=== PATIENT | female | born 1985 | race Caucasian/White ===

== ENCOUNTER → 2020-06-13 10:31 | Outpatient (CLI) | payer OTHER, SELFPAY ==
[2020-06-13 13:51] LABS: COVID19 -Nasal RAPID Negative (Negative)
== END ==
PROVIDERS: Visit Provider Physician Assistant
DX: Z20.822 Contact with and (suspected) exposure to COVID-19 (principal)
CPT/HCPCS: 87635

== ENCOUNTER 2020-06-15 08:27 | Day surgery (SDC) | payer OTHER, SELFPAY ==
[2020-06-15] VITALS (8 sets, daily range): BP systolic 103–124; BP diastolic 69–79; PULSE 92–111; RESP 14–20; TEMP 36.2–36.9; O2SAT 91–99; BMI 31.6
[2020-06-15] MEDS: SODIUM CHLORIDE 0.9% 1,000 ML 42 ML IV (09:30)
--- NOTE | 2020-06-15 09:37 | PM.HP.1 ---
History of Present Illness History of Present Illness Date Patient Seen: 06/15/20 Chief complaint: SDC Narrative: Abdominal pain and change in bowel movements Patient History Medical History (Updated 06/15/20 @ 09:20 by Ernestina Lopez, RN) BMI greater than 30 Chronic back pain Endometriosis Surgical History (Updated 06/15/20 @ 09:20 by Ernestina Lopez, RN) H/O ovarian cystectomy History of laparoscopy History of tonsillectomy S/P breast lumpectomy S/P left knee arthroscopy Family & Social History Social History: household members spouse,children Tobacco & Substance use: Smoking Status Never smoker alcohol intake never Substance Use Type does not use Meds Home Medications and Allergies Home Medications Medication Instructions Recorded Confirmed Type naproxen 500 mg PO BID PRN 06/15/20 06/15/20 History Allergies Allergy/AdvReac Type Severity Reaction Status Date / Time No Known Drug Allergies Allergy Verified 06/15/20 09:17 Exam Vital Signs (past 8 hours): - 06/15/20 09:13 Temperature 97.1 F L Pulse Rate 92 H Respiratory Rate 14 Blood Pressure 120/76 Pulse Oximetry 99 Oxygen Delivery Method Room Air Narrative Exam Narrative: Oropharynx free of lesions Chest clear to auscultation percussion Cardiac exam reveals no S3 or murmur Assessment & Plan Assessment & Plan narrative: Abnormal bowel movements with abdominal pain rule out underlying colitis. Also occasional fecal incontinence rule out rectal lesion. Risks benefits alternatives have been explained. Quality MIPS - Admit Advanced Care Plan / Current Medications Measures: #47 ? Advanced Care Plan Clinician documentation instruction: document at admission. [] I confirmed that the patient's Advance Care Plan is present, code status is documented, or surrogate decision maker is listed in the patient?s medical record. [SATISFIES MIPS PERFORMANCE] If Yes, Stop Here [] The patient?s Advance Care plan is not present because: (select) [MIPS PERFORMANCE EXCEPTION/EXCLUSION] [] I confirmed today that the patient does not wish or was not able to name a surrogate decision maker or provide an Advance Care Plan. [] Hospice care is currently being provided or has been provided this calendar year [] I did NOT confirm today the presence of an Advance Care Plan or surrogate decision maker documented within the patient's medical record. [DOES NOT SATISFY MIPS PERFORMANCE] #130 - Documentation of Current Medications in the Medical Record Clinician documentation instruction: use macro the first time you see a patient. [] I have utilized all available immediate resources to obtain, update, or review the patient?s current medications. [SATISFIES MIPS PERFORMANCE] If Yes, Stop Here [] The patient is not eligible for medication reconciliation; the patient is in an emergent medical situation where delaying treatment would jeopardize the patient?s health. [MIPS PERFORMANCE EXCEPTION/EXCLUSION] [] I did NOT confirm, update or review the patient's current list of medications today. [DOES NOT SATISFY MIPS PERFORMANCE] MIPS - CL Central Venous Catheter Placement Measure: #76 ? Prevention of Central Venous Catheter (CVC) ? Related Bloodstream Infection Clinician documentation instruction: use macro every time you place a central line. [] All elements of Maximal Sterile Barrier Technique, including hand hygiene, skin prep, and sterile ultrasound technique (if used) were followed. [SATISFIES MIPS PERFORMANCE] If Yes, Stop Here [] If ?No?, the medical reason all elements were NOT used for medical reason [] (ex. emergent condition). [] Maximal Sterile Barrier Technique was not followed, no reason provided [DOES NOT SATISFY MIPS PERFORMANCE] MIPS - DC Heart Failure Measures: #5 - Heart Failure (HF): Angiotensin-Converting Enzyme ([place]) Inhibitor or Angiotensin Receptor Jaswinder (ARB) Therapy for Left Ventricular Systolic Dysfunction (LVSD) and #8 - Heart Failure (HF): Beta-Jaswinder Therapy for Left Ventricular Systolic Dysfunction (LVSD) Clinician documentation instruction: use macro at every CHF discharge. [] The patient has current or prior documentation of left ventricular ejection fraction (LVEF) less than 40%, or moderate or severely depressed left ventricular systolic function. Answer both: [SATISFIES MIPS PERFORMANCE] [] The patient was prescribed or already taking an Angiotensin-Converting Enzyme ([place]) Inhibitor, or Angiotensin Receptor Jaswinder (ARB). [] The patient was prescribed or already taking a beta-jaswinder. If Yes to Both, Stop Here [] Patient not prescribed/taking: [MIPS PERFORMANCE EXCEPTION/EXCLUSION] [] [place] or ARB for medical/patient/system reason(s) including [] (ex. allergy, intolerance, contraindication) [] Beta-jaswinder for medical/patient/system reason(s) including [] (ex. allergy, intolerance, contraindication) [] Patient not prescribed/taking: [DOES NOT SATISFY MIPS PERFORMANCE] [] [place] or ARB, no reason given [] Beta-jaswinder, no reason given
--- NOTE | 2020-06-15 09:38 | PM.OP.ENDO ---
Operative Date/Time/Diagnoses Date of procedure: 06/15/20 Pre-op diagnosis: See indication and findings Procedure & Clinicians Study performed: Colonoscopy Same procedure as scheduled: Yes Indications: Abnormal bowel movements and abdominal pain Surgeon: Elton Powers Procedure Notes Procedure in detail: After informed consent was obtained the patient was placed in left lateral decubitus position. The video colonoscope was introduced the rectum slowly advanced cecum. Preparation was good. On slow withdrawal mucosa was carefully examined. The scope was removed. The patient tolerated procedure well. Blood loss none Complications none Sedation Total sedation time 20 minutes Versed 10 mg fentanyl 200 micro g IV titration Findings 1. Extensive sigmoid diverticulosis 2. Relatively tortuous colon throughout 3. Otherwise negative colonoscopy to cecum. This included the close evaluation of rectum. Patient is to follow up with Dr. Gómez as needed.
[2020-06-15] MEDS: MIDAZOLAM 5 MG/5 ML VIAL IV (10:18)
[2020-06-15] MEDS: fentaNYL 250 MCG/5 ML INJ IV (10:18)
== END 2020-06-15 11:24 | disposition home or self-care (01) ==
PROVIDERS: Referring Provider Internal Medicine Gastroenterology; Visit Provider Internal Medicine Gastroenterology
PROC: 0DJD8ZZ Inspection of Lower Intestinal Tract, Via Natural or Artificial Opening Endoscopic (ICD-10-PCS; CPT 45378; principal; 2020-06-15 10:00)
DX: R10.9 Unspecified abdominal pain (principal); R19.4 Change in bowel habit; R15.9 Full incontinence of feces; K57.30 Diverticulosis of large intestine without perforation or abscess without bleeding
CPT/HCPCS: 45378; J2250; J3010

== ENCOUNTER → 2020-07-29 11:28 | Outpatient (CLI) | payer OTHER, SELFPAY ==
--- NOTE | 2020-07-29 11:32 | DI.CT.S_ITS ---
PROCEDURE: CT CERVICAL SPINE WO CON INDICATIONS: Neuralgia and neuritis, unspecified TECHNIQUE: Noncontrast 3 mm thick sections acquired from the skull base to the T4 level. Sagittal and coronal reformats were then constructed. For radiation dose reduction, the following was used: automated exposure control, adjustment of mA and/or kV according to patient size. COMPARISON: None. FINDINGS: Image quality: Excellent. Bones: No fractures or dislocations. Visualized superior ribs are intact. Levoconvex cervical thoracic scoliotic curvature is seen. There is congenital fusion seen at the C3-C4 level. Soft tissues: Prevertebral soft tissues are normal in thickness. No paravertebral hematomas. No apical pneumothoraces. 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 Note made of levoconvex cervical thoracic scoliotic curvature. Dictated by: Francis Sheehan M.D. on 07/29/2020 at 11:33 Approved by: Francis Sheehan M.D. on 07/29/2020 at 11:34
== END ==
PROVIDERS: PCP Family Medicine; Referring Provider Family Medicine; Visit Provider Family Medicine
DX: M79.2 Neuralgia and neuritis, unspecified (principal); M43.22 Fusion of spine, cervical region; M41.83 Other forms of scoliosis, cervicothoracic region
CPT/HCPCS: 72125